=== PATIENT | female | born 1990 | race Caucasian/White ===

== ENCOUNTER 2018-07-04 03:07 | Emergency (ER) | payer SELFPAY ==
[2018-07-04] MEDS ORDERED: DEXAMETHASONE SOD PHOS INJ 10 MG/1 ML VIAL IM ONE (04:45)
[2018-07-04] MEDS ORDERED: CIPROFLOXACIN HCL/DEXAMETH OTIC DROP 7.5 ML AD ONE (04:45)
[2018-07-04] MEDS ORDERED: AMOXICILLIN TRIHYDRATE 500 MG CAPSULE PO ONE (04:45)
--- NOTE | 2018-07-04 04:47 | ER Document Report ---
HPI - HPI Patient complains to provider of: Right ear pain Time Seen by Provider: 07/04/18 04:21 Pain Level: 5 Context: Patient is a 27-year-old female that comes to the emergency department for chief complaint of severe right ear pain. She states that she stays congested, she has terrible seasonal allergies, she is already using nasal spray and antiallergy, occasionally gets ear infections. She denies sinus pain, headache, fever, sore throat, jaw pain. She denies chest pain or shortness of breath. She has had a menstrual cycle within the past month. She denies any daily medications. - CONSTITUTIONAL Constitutional: REPORTS: Fever, Chills - EENT EENT: REPORTS: Ear Pain - right ear. DENIES: Sore Throat - NEURO Neurology: REPORTS: Headache - REPRODUCTIVE Reproductive: DENIES: : Past Medical History - General Information source: Patient - Social History Smoking Status: Never Smoker Chew tobacco use (# tins/day): No Frequency of alcohol use: None Drug Abuse: None Lives with: Alone Family History: Arthritis, CAD, DM, Hyperlipidemia, Hypertension, Malignancy Patient has suicidal ideation: No Patient has homicidal ideation: No Pulmonary Medical History: Reports: Hx Asthma Renal/ Medical History: Denies: Hx Peritoneal Dialysis GI Medical History: Reports: Hx Gastroesophageal Reflux Disease Musculoskeletal Medical History: Reports Hx Arthritis Psychiatric Medical History: Reports: Hx Anxiety, Hx Depression, Hx Post Traumatic Stress Disorder - Immunizations Immunizations up to date: Yes Hx Diphtheria, Pertussis, Tetanus Vaccination: Yes - tetnus only Vertical Provider Document - CONSTITUTIONAL General Appearance: Mild Distress - Patient is holding her right ear, appears to be somewhat uncomfortable, Thin - INFECTION CONTROL TRAVEL OUTSIDE OF THE [place] IN LAST 30 DAYS: No - HEENT HEENT: Atraumatic, Normocephalic. negative: Normal ENT Exam - Swollen right ear canal consistent with otitis externa, erythematous and dull tympanic membrane with diminished light reflex, normal mastoid. Posterior and anterior lymph node swelling which is very mild. Normal left ear exam, normal oral pharyngeal exam - NECK Neck: Normal Inspection - RESPIRATORY Respiratory: Breath Sounds Normal, No Respiratory Distress - CARDIOVASCULAR Cardiovascular: Regular Rate, Regular Rhythm - GI/ABDOMEN Gastrointestinal: Abdomen Soft, Abdomen Non-Tender - BACK Back: Normal Inspection - MUSCULOSKELETAL/EXTREMETIES Musculoskeletal/Extremeties: MAEW, FROM, Non-Tender - NEURO Level of Consciousness: Awake, Alert, Appropriate Motor/Sensory: No Motor Deficit, No Sensory Deficit - DERM Integumentary: Warm, Dry, No Rash Course - Re-evaluation Re-evalutation: Patient states she cannot take anything for pain because of her allergies. She does have evidence of both otitis media and otitis externa on exam with lymphadenopathy of the posterior and anterior auricular areas. There is no mastoiditis, perforation, cellulitis, nuchal rigidity, or signs of infection otherwise. Medicating for both otitis externa and otitis media. Discussed follow-up and return precautions. Patient states understanding and agreement. - Vital Signs Vital signs: Temp Pulse Resp BP Pulse Ox 98.3 F 83 20 141/87 H 100 07/04/18 03:12 07/04/18 03:12 07/04/18 03:12 07/04/18 03:12 07/04/18 03:12 Discharge - Discharge Clinical Impression: Right ear pain Otitis media Qualifiers: Otitis media type: suppurative Chronicity: acute Laterality: right Recurrence: not specified as recurrent Spontaneous tympanic membrane rupture: without spontaneous rupture Qualified Code(s): H66.001 - Acute suppurative otitis media without spontaneous rupture of ear drum, right ear Otitis externa Qualifiers: Otitis externa type: unspecified type Chronicity: acute Laterality: right Qualified Code(s): H60.501 - Unspecified acute noninfective otitis externa, right ear Condition: Stable Disposition: HOME, SELF-CARE Additional Instructions: Your evaluation is consistent with both middle and external ear infection with swollen lymph nodes. Take oral antibiotics as prescribed. Take drops as prescribed (4 drops, twice a day, for 7 days). Follow-up with primary care. Consider allergy testing and management. Return to the emergency department for any concerning or worsening symptoms including fever, vomiting, swelling at the ear, severe worsening pain, or any other concerning or worsening symptoms. Prescriptions: Amoxicillin Trihydrate [Amoxil 500 mg Capsule] 1,000 mg PO TID 7 Days #42 capsule Referrals: LOCAL,NO [NO LOCAL MD] - Follow up as needed
[2018-07-04 05:16] VITALS: BP 136/77
== END 2018-07-04 05:26 | disposition home or self-care (01) ==
LOC: ER 03:07
DX: H66.001 Acute suppurative otitis media without spontaneous rupture of ear drum, right ear (principal); H60.501 Unspecified acute noninfective otitis externa, right ear; H92.01 Otalgia, right ear; J45.909 Unspecified asthma, uncomplicated
CPT/HCPCS: 99282; 96372; J3490; J1100